=== PATIENT | male | born 1985 | race Caucasian/White ===

== ENCOUNTER 2018-06-26 16:10 | Emergency (ER) | payer SELFPAY ==
[~2018-06-26] VITALS: Ht 172.7 cm; Wt 81.6 kg
[2018-06-26 16:13] VITALS: BP 147/86
[2018-06-26] MEDS: KETOROLAC 30 MG/ML VIAL IM ONE (16:47)
[2018-06-26 17:30] VITALS: BP 134/82
== END 2018-06-26 17:30 | disposition home or self-care (01) ==
LOC: MED 16:10 → EDBD 16:10 → MED 17:30
DX: S13.4XXA Sprain of ligaments of cervical spine, initial encounter (principal); S20.219A Contusion of unspecified front wall of thorax, initial encounter; V89.2XXA Person injured in unspecified motor-vehicle accident, traffic, initial encounter; Y93.89 Activity, other specified; Y92.89 Other specified places as the place of occurrence of the external cause; Y99.8 Other external cause status
CPT/HCPCS: 71046; 72050; 96372; 99284; J1885